=== PATIENT | female | born 1935 | race Two or more races ===

== ENCOUNTER 2023-03-27 00:46 | Inpatient (IN) | payer MEDICAID, OTHER ==
[~2023-03-27] VITALS: Ht 157.5 cm; Wt 49.4 kg
[2023-03-27] MEDS ORDERED: MORPHINE SULFATE INJ 2 MG/ML DISP.SYRIN IV ONE (01:00)
[2023-03-27] MEDS ORDERED: MORPHINE SULFATE INJ 4 MG/ML DISP.SYRIN ONE ×2 (01:02→05:28)
[2023-03-27] MEDS ORDERED: PROPOFOL 1,000 MG/100 ML BOTTLE IV ONE ×2 (01:30)
[2023-03-27] MEDS ORDERED: PROPOFOL 20 ML IV ONE (01:36)
[2023-03-27] MEDS ORDERED: LATA2.5D15 EACHEYE (02:18)
[2023-03-27] MEDS ORDERED: CARV6.252 PO (02:20)
[2023-03-27] MEDS ORDERED: ONDANSETRON HCL/PF 4 MG/2 ML VIAL IVP PRN (02:30)
[2023-03-27] MEDS ORDERED: MAG HYDROX/AL HYDROX/SIMETH 30 ML UDC PO PRN (02:30)
[2023-03-27] MEDS ORDERED: MAGNESIUM HYDROXIDE 30 ML UDC PO PRN (02:30)
[2023-03-27] MEDS ORDERED: Z GUARD REMEDY 4 OZ OINT TP PRN (02:30)
[2023-03-27] MEDS ORDERED: ZOLPIDEM TARTRATE 5 MG TABLET PO PRN (02:30)
[2023-03-27] MEDS ORDERED: ACETAMINOPHEN 325 MG TABLET PO PRN (02:30)
[2023-03-27] MEDS ORDERED: MORPHINE SULFATE INJ 4 MG/ML DISP.SYRIN IV PRN (05:30)
[2023-03-27 07:00] VITALS: BP 150/84; TEMP 98.5; O2SAT 100
[2023-03-27 07:01] VITALS: BP 157/79; TEMP 98.5; O2SAT 100
[2023-03-27] MEDS ORDERED: ALBU8.5H8 IH (07:59)
[2023-03-27] MEDS ORDERED: PROM118S5 PO (07:59)
[2023-03-27] MEDS ORDERED: ALBU0.633 IH (07:59)
[2023-03-27] MEDS: PANTOPRAZOLE 40 MG VIAL IV SCH (08:36)
[2023-03-27] MEDS: IV D5/0.45 NACL 1,000 ML IV PRN (09:26)
[2023-03-27 16:00] VITALS: BP 153/68; TEMP 97.4; O2SAT 100
[2023-03-27] MEDS ORDERED: HYDROCODONE/APAP 5/325MG TABLET PO PRN (16:00)
[2023-03-27] MEDS: MORPHINE SULFATE INJ 2 MG/ML DISP.SYRIN IV PRN (17:00)
[2023-03-27 20:00] VITALS: BP 153/63; TEMP 98.1; O2SAT 100
[2023-03-28] MEDS: IV D5/0.45 NACL 1,000 ML IV PRN ×2 (04:40→17:59)
[2023-03-28 05:15] VITALS: O2SAT 98
[2023-03-28 06:47] LABS: BASOPHILS % (AUTO) 0.3 % (0.0-2.0); EOSINOPHILS % (AUTO) 0.9 % (0.0-6.0); LYMPHOCYTES # (AUTO) 0.9 K/uL (0.8-4.8); LYMPHOCYTES % (AUTO) 19.1 % (20.0-44.0); MEAN CORPUSCULAR HEMOGLOBIN 27 PG (26.0-33.0); MEAN CORPUSCULAR HGB CONC 34 g/dl (31.0-36.0); MEAN CORPUSCULAR VOLUME 79 fL (82-100); MONOCYTES # (AUTO) 1.4 K/uL (0.1-1.30); MONOCYTES % (AUTO) 29.7 % (2.0-12.0); NEUTROPHILS # (AUTO) 2.3 K/uL (1.8-8.9); PLATELET COUNT (AUTO) 72 K/uL (150-450); RED BLOOD CELL COUNT(AUTO) 2.53 MIL/uL (4.0-5.2); RED CELL DISTRIBUTION WIDTH 13.3 % (11.5-15.0); WHITE BLOOD COUNT (AUTO) 4.7 K/uL (4.3-11.0)
[2023-03-28 07:01] LABS: HEMOGLOBIN 6.7 g/dL (11.5-14.8)
[2023-03-28 07:02] LABS: HEMATOCRIT 20 % (33-45)
[2023-03-28 07:07] LABS: CALCIUM, SERUM 8.2 mg/dL (8.5-10.1); CREATININE 1.1 mg/dL (0.6-1.3); MAGNESIUM 2.2 mg/dL (1.8-2.4); POTASSIUM 3.9 mmol/L (3.5-5.1)
[2023-03-28 08:00] VITALS: BP 150/103; TEMP 98.1; O2SAT 100
[2023-03-28 08:02] LABS: LYMPHOCYTES % (MANUAL) 24 % (16-48); MONOCYTES % (MANUAL) 25 % (0-11.0); NEUTROPHILS % (MANUAL) 51 (42-76)
[2023-03-28 08:03] LABS: PLATELET ESTIMATE DECREASED
[2023-03-28] MEDS: MORPHINE SULFATE INJ 2 MG/ML DISP.SYRIN IV PRN ×3 (08:19→21:58)
[2023-03-28] MEDS: PANTOPRAZOLE 40 MG VIAL IV SCH (08:19)
[2023-03-28 08:52] LABS: THYROID STIMULATING HORMONE 0.531 uIU/mL (0.358-3.74)
[2023-03-28] MEDS: PANTOPRAZOLE 40 MG TABLET.DR PO SCH (09:00)
[2023-03-28 09:22] LABS: HEMOGLOBIN 6.6 g/dL (11.5-14.8)
[2023-03-28 12:39] LABS: IRON, SERUM 31 ug/dl (50-175); TOTAL IRON BINDING CAPACITY 209 ug/dl (250-450)
[2023-03-28 12:55] LABS: FERRITIN 179 ng/mL (8-388)
[2023-03-28 16:00] VITALS: BP 148/60; TEMP 98.4; O2SAT 100
[2023-03-28] MEDS: CARVEDILOL 3.125 MG TABLET PO SCH ×2 (16:25→17:00)
[2023-03-28 17:08] LABS: HEMOGLOBIN 6.6 g/dL (11.5-14.8)
[2023-03-28 21:24] VITALS: BP 147/58; TEMP 98.6; O2SAT 100
[2023-03-29] VITALS (8 sets, daily range): BP systolic 13–148; BP diastolic 36–68; TEMP 97.7–98.6; O2SAT 100
[2023-03-29 00:35] LABS: HEMOGLOBIN 6.3 g/dL (11.5-14.8)
[2023-03-29] MEDS: MORPHINE SULFATE INJ 2 MG/ML DISP.SYRIN IV PRN ×2 (05:29→20:51)
[2023-03-29 06:41] LABS: ALANINE AMINOTRANSFERASE 10 U/L (12-78); ALBUMIN 2.5 g/dL (3.4-5.0); ALKALINE PHOSPHATASE 53 U/L (46-116); ASPARTATE AMINOTRANSFERASE 11 U/L (15-37); BILIRUBIN,TOTAL 0.6 mg/dL (0.2-1.0); CARBON DIOXIDE 24 mmol/L (21-32); CHLORIDE 102 mmol/L (98-107); CREATININE 0.9 mg/dL (0.6-1.3); GLUCOSE 190 mg/dL (74-106); POTASSIUM 3.4 mmol/L (3.5-5.1); SODIUM SERUM 135 mmol/L (136-145); TOTAL PROTEIN, SERUM 5.3 g/dL (6.4-8.2); UREA NITROGEN, BLOOD 20 mg/dL (7-18)
[2023-03-29] MEDS: PANTOPRAZOLE 40 MG TABLET.DR PO SCH (08:46)
[2023-03-29] MEDS ORDERED: POTASSIUM CHLORIDE 20 MEQ POWDER PACKET PO ONE (09:00)
[2023-03-29] MEDS: CARVEDILOL 3.125 MG TABLET PO SCH ×2 (11:54→16:53)
[2023-03-29 12:03] LABS: HEMOGLOBIN 9.1 g/dL (11.5-14.8)
[2023-03-29] MEDS: IV D5/0.45 NACL 1,000 ML IV PRN (13:30)
[2023-03-29 16:58] LABS: HEMOGLOBIN 8.8 g/dL (11.5-14.8)
[2023-03-30 07:17] LABS: HEMOGLOBIN 8.4 g/dL (11.5-14.8)
[2023-03-30 07:31] LABS: ALANINE AMINOTRANSFERASE 9 U/L (12-78); ALBUMIN 2.2 g/dL (3.4-5.0); ALKALINE PHOSPHATASE 62 U/L (46-116); ASPARTATE AMINOTRANSFERASE 11 U/L (15-37); BILIRUBIN,TOTAL 0.7 mg/dL (0.2-1.0); CALCIUM, SERUM 7.8 mg/dL (8.5-10.1); CARBON DIOXIDE 23 mmol/L (21-32); CHLORIDE 101 mmol/L (98-107); CREATININE 0.7 mg/dL (0.6-1.3); GLUCOSE 276 mg/dL (74-106); POTASSIUM 3.5 mmol/L (3.5-5.1); SODIUM SERUM 131 mmol/L (136-145); TOTAL PROTEIN, SERUM 5.1 g/dL (6.4-8.2); UREA NITROGEN, BLOOD 14 mg/dL (7-18)
[2023-03-30 08:00] VITALS: BP_SYST 104; BP_SYST 152; BP_DIAS 71; BP_DIAS 74; TEMP 101.1; TEMP 95.8; O2SAT 100; O2SAT 95
[2023-03-30] MEDS: CARVEDILOL 3.125 MG TABLET PO SCH ×2 (09:27→17:29)
[2023-03-30] MEDS: PANTOPRAZOLE 40 MG TABLET.DR PO SCH (09:27)
[2023-03-30] MEDS: IV D5/0.45 NACL 1,000 ML IV PRN (14:45)
[2023-03-30 16:00] VITALS: BP 149/71; TEMP 98.6; O2SAT 93
[2023-03-30] MEDS: MORPHINE SULFATE INJ 2 MG/ML DISP.SYRIN IV PRN ×2 (16:16→22:04)
[2023-03-30 18:07] LABS: HEMOGLOBIN 8.8 g/dL (11.5-14.8)
[2023-03-30 20:00] VITALS: BP 132/63; TEMP 97.9; O2SAT 95
[2023-03-31 01:49] LABS: HEMOGLOBIN 8.6 g/dL (11.5-14.8)
[2023-03-31] MEDS: IV D5/0.45 NACL 1,000 ML IV PRN (04:15)
[2023-03-31 06:51] LABS: BASOPHILS % (AUTO) 0.2 % (0.0-2.0); EOSINOPHILS # (AUTO) 0.1 K/uL (0.0-0.7); EOSINOPHILS % (AUTO) 1.4 % (0.0-6.0); HEMATOCRIT 26 % (33-45); HEMOGLOBIN 8.7 g/dL (11.5-14.8); LYMPHOCYTES # (AUTO) 0.5 K/uL (0.8-4.8); LYMPHOCYTES % (AUTO) 6.6 % (20.0-44.0); MEAN CORPUSCULAR HEMOGLOBIN 27 PG (26.0-33.0); MEAN CORPUSCULAR HGB CONC 34 g/dl (31.0-36.0); MEAN CORPUSCULAR VOLUME 82 fL (82-100); MONOCYTES % (AUTO) 26.2 % (2.0-12.0); NEUTROPHILS # (AUTO) 5.1 K/uL (1.8-8.9); NEUTROPHILS % (AUTO) 65.6 % (43.0-81.0); PLATELET COUNT (AUTO) 52 K/uL (150-450); RED BLOOD CELL COUNT(AUTO) 3.18 MIL/uL (4.0-5.2); RED CELL DISTRIBUTION WIDTH 13.3 % (11.5-15.0); WHITE BLOOD COUNT (AUTO) 7.8 K/uL (4.3-11.0)
[2023-03-31 07:00] VITALS: BP 140/71; TEMP 98.8; O2SAT 99
[2023-03-31 07:22] LABS: ALANINE AMINOTRANSFERASE 8 U/L (12-78); ALKALINE PHOSPHATASE 69 U/L (46-116); ASPARTATE AMINOTRANSFERASE 15 U/L (15-37); BILIRUBIN,TOTAL 0.6 mg/dL (0.2-1.0); CALCIUM, SERUM 8.1 mg/dL (8.5-10.1); CARBON DIOXIDE 20 mmol/L (21-32); CHLORIDE 102 mmol/L (98-107); CREATININE 0.6 mg/dL (0.6-1.3); GLUCOSE 161 mg/dL (74-106); POTASSIUM 3.5 mmol/L (3.5-5.1); SODIUM SERUM 133 mmol/L (136-145); TOTAL PROTEIN, SERUM 5.3 g/dL (6.4-8.2); UREA NITROGEN, BLOOD 12 mg/dL (7-18)
[2023-03-31] MEDS ORDERED: IV D5/ 0.9% NACL 1,000 ML IV PRN (08:30)
[2023-03-31] MEDS: PANTOPRAZOLE 40 MG TABLET.DR PO SCH (09:11)
[2023-03-31] MEDS: CARVEDILOL 3.125 MG TABLET PO SCH ×2 (09:12→16:54)
[2023-03-31 11:29] LABS: ANISOCYTOSIS 1+; BASOPHILS % (MANUAL) 0 % (0.0-2.0); EOSINOPHILS % (MANUAL) 1 % (0-4); LYMPHOCYTES % (MANUAL) 9 % (16-48); MONOCYTES % (MANUAL) 26 % (0-11.0); NEUTROPHILS % (MANUAL) 64 (42-76); PLATELET ESTIMATE DECREASED
[2023-03-31 16:00] VITALS: BP 144/66; TEMP 98.7; O2SAT 96
[2023-03-31 16:54] VITALS: BP 144/66
== END 2023-03-31 17:56 | disposition home health service (06) | DRG 342 ==
LOC: ER 00:49 → MED 03:01
PROVIDERS: ATTEND Internal Medicine
PROC: 0PSJXZZ Reposition Left Radius, External Approach (ICD-10-PCS; principal; 2023-03-27)
PROC: 30233N1 Transfusion of Nonautologous Red Blood Cells into Peripheral Vein, Percutaneous Approach (ICD-10-PCS; 2023-03-29)
DX: S52.502A Unspecified fracture of the lower end of left radius, initial encounter for closed fracture (principal); E44.0 Moderate protein-calorie malnutrition; D63.8 Anemia in other chronic diseases classified elsewhere; E87.1 Hypo-osmolality and hyponatremia; D62 Acute posthemorrhagic anemia; S42.211A Unspecified displaced fracture of surgical neck of right humerus, initial encounter for closed fracture; S52.602A Unspecified fracture of lower end of left ulna, initial encounter for closed fracture; S00.83XA Contusion of other part of head, initial encounter; I10 Essential (primary) hypertension; W18.30XA Fall on same level, unspecified, initial encounter; R63.1 Polydipsia; J44.9 Chronic obstructive pulmonary disease, unspecified; Y93.9 Activity, unspecified; Y92.009 Unspecified place in unspecified non-institutional (private) residence as the place of occurrence of the external cause; Z68.1 Body mass index [BMI] 19.9 or less, adult
CPT/HCPCS: 36415; 70450-TC; 73000-TC; 73030-TC; 73110; 80048-TC; 80053-TC; 82728-TC; 83540-TC; 83735-TC; 84100-TC; 84443-TC; 85025-TC; 85027-TC; 85045-TC; 86850-TC; 94799-TC; 97110-TC; 97530-TC; A4223; C9113; G0378; J2270; J2704; J3490; J7050; P9016